=== PATIENT | female | born 2005 | race Native Hawaiian/Other Pacific Islander ===

== ENCOUNTER 2024-09-21 08:18 | Emergency (ER) | payer OTHER, SELFPAY ==
--- NOTE | ~2024-09-21 | CT_ITS ---
CLINICAL HISTORY: LLQ pain, nausea CT ABDOMEN AND PELVIS WITH CONTRAST Comparison: None provided Findings: Mild bibasilar atelectasis. No basilar consolidation or pleural effusion. Unremarkable gallbladder and solid organs. No urolithiasis. No bowel obstruction, pneumoperitoneum, or pneumatosis. No ascites or organized fluid collection. No significant mesenteric or paracolic edema. CT appearances of the uterus and ovaries unremarkable. Probable fluid in the endocervical canal. The appendix is partly visualized. No definite appendicitis. Grossly unremarkable underdistended urinary bladder. No acute fracture. IMPRESSION: No obstructive or acute inflammatory changes in the gastrointestinal and genitourinary tracts. This document has been electronically signed by: Donita Eason DO on 09/21/2024 14:14:26
[2024-09-21 08:24] VITALS: BP 114/62; PULSE 90; RESP 18; TEMP 36.6; O2SAT 98; BMI 40.3
--- NOTE | 2024-09-21 09:24 | ED_ITS ---
HPI - Nausea/Vomiting/Diarrhea General Chief complaint: Nausea/Vomiting/Diarrhea Stated complaint: vomiting Time Seen by Provider: 09/21/24 08:58 Source: patient and RN notes reviewed Mode of arrival: ambulatory Limitations: no limitations History of Present Illness ED Provider: Martha Dinero PA-C HPI Narrative: This is a 19-year-old female, with no known medical problems, who presents emergency department with concerns for nausea and vomiting for the last 24 hours. Patient states that she also has had nausea over the last several weeks. Patient reports that every time she eats she feels nauseous. She states that she also has had constipation this past week, states that she took an [id number] laxative type medication which provided her with some relief. She states that she has also has had diarrhea since. Denies any recent travel, surgery, hospitalizations. No recent antibiotic use. No sick contacts. No known food exposures. She states that she continues to have nausea. She states that she also gets very nauseous with alcohol use. She denies any fevers, chills, chest pain, shortness of breath. She states that she has had abdominal cramping, located on the left side which has been intermittent. Her last menstrual period was at the end of August. She is sexually active. She states that she also has had increased vaginal discharge, does report possible concerned for sexually transmitted infection. No other complaints or concerns at this time. MD elicited complaint: nausea Onset (ago): day(s) Associated nausea: Yes Associated abdominal pain: Yes Location of pain: LUQ and LLQ Pain consistency: intermittent Quality: cramping Exacerbating factors: none Relieving factors: none Associated symptoms: denies other symptoms Related Data Previous Rx's ?Medication ?Instructions ?Recorded metronidazole 500 mg tablet 500 mg PO BID 7 days #14 t abs 09/21/24 ondansetron 4 mg disintegrating 4 mg PO Q6H PRN nausea and 09/21/24 tablet vomiting #10 tabs Allergies Allergy/AdvReac Type Severity Reaction Status Date / Time No Known Allergies Allergy Verified 09/21/24 08:27 Review of Systems 2 Review of Systems: Yes all other systems are reviewed and are negative Constitutional: Constitutional: Reports as per HPI Gastrointestinal: Gastrointestinal: Reports nausea PMFSH Past Medical History Attestation statement: The following information was validated with the patient. Social History Social History Smoked in Last 30 Days: No Use of substances other than those prescribed or required for medical reasons: No Advance Directives: No Advance Directives Information Provided: No Patient : No Physical Exam 2 Vital Signs: Vital Signs: Last Vital Signs Temp 98.3 F 09/21/24 14:11 Pulse 92 09/21/24 14:11 Resp 16 09/21/24 14:11 BP 111/73 09/21/24 14:11 Pulse Ox 98 09/21/24 14:11 O2 Del Method Room Air 09/21/24 14:11 BMI result Body Mass Index 40.3 Const: General: cooperative, comfortable and no acute distress O rientation/consciousness: patient oriented x3 Limitations: no limitations HEENT: Head: Yes normal to inspection, Yes normocephalic and Yes atraumatic Ears: hearing grossly normal bilaterally General nose exam: Normal external nose present Face and sinus: Yes normal facial exam Mouth: Normal oral and palatal mucosa present, oropharynx normal and moist mucous membranes Throat: Yes posterior oropharynx normal Eyes: General: appearance normal, both eyes and all related structures E yelids: Yes eyelids normal Conjunctivae: conjunctivae normal Sclerae: s clerae normal Pupils: Equal, round and reactive pupils present EOM: EOMs intact bilaterally Neck: Neck: Yes normal visual inspection, Yes full ROM and Yes no lymphadenopathy Lymphatic: no lymphadenopathy noted Chest: Chest palpation & inspection: normal inspection of the chest Resp: Effort & Inspection: normal respiratory effort and able to speak in complete sentences Auscultation: clear to auscultation bilaterally, no crackles, no rales, no rhonchi and no wheezes Cardio: Rate: regular rate Rhythm: regular rhythm Heart sounds: S1 normal heart sound present and S2 normal heart sound present GI: Inspection: Yes normal to inspection : Other: Pelvic examination performed with [employer] technicians present at all times. Vaginal vault with slightly yellow been for vaginal discharge noted, cervical os is closed, no cervical motion tenderness. External Female Exam: normal external appearance and normal appearance of the urethra Speculum Exam - Vagina: normal appearance of the vagina and normal palpation Speculum Exam - Cervix: normal appearance of the cervix B imanual exam- vagina & uterus: normal palpation Skin: General skin exam: no rashes or lesions noted Trauma: no lacerations or abrasions Wounds: no wounds Neuro: General: patient oriented x3 and moves all extremities Cranial nerves: Yes Equal, round and reactive pupils present Extrem: General: Yes normal to inspection Right upper extremity: normal to inspection Left upper extremity: normal to inspection Right lower extremity: normal to inspection Left lower extremity: normal to inspection Medications Administered Discontinued Medications Generic Name Dose Route Start Last Admin Trade Name Freq PRN Reason Stop Dose Admin Diphenhydramine HCl 12.5 mg 09/21/24 12:04 09/21/24 12:09 Diphenhydramine Hcl 50 Mg/Ml Vial IVPUSH 09/21/24 12:05 12.5 mg ONCE ONE Administration Sodium Chloride 1,000 mls @ 999 mls/hr 09/21/24 10:00 09/21/24 10:56 Ns IV 09/21/24 11:00 Infused .Q1H1M SUHA Infusion Iohexol 85 ml 09/21/24 13:07 09/21/24 13:07 Iohexol 350 Mg/Ml 100 Ml Infus..Btl IV 09/21/24 13:08 85 ml ONCE ONE Administration Metoclopramide HCl 10 mg 09/21/24 12:04 09/21/24 12:09 Metoclopramide Hcl 10 Mg/2 Ml Vial IVPUSH 09/21/24 12:05 10 mg ONCE ONE Administration Ondansetron HCl 4 mg 09/21/24 10:19 09/21/24 10:45 Ondansetron Hcl 4 Mg/2 Ml Vial IVPUSH 09/21/24 10:20 4 mg ONCE ONE Administration Medical Decision Making Medical Decision Making [facility] Narrative: This is a 19-year-old female, with no known medical problems, who presents emergency department with concerns of nausea and vomiting for the last 24 hours. On arrival, vital signs within normal limits. She is speaking full sentences under no acute distress. Abdomen is soft with no tenderness palpation throughout, no rebound or guarding. Patient has had nausea for several weeks, worsening over the last 24 hours. She states that she took a test yesterday which was negative. Does report increased vaginal discharge. Expresses possible concern for STI. Denies history of similar symptoms in the past. Differential diagnoses include , electrolyte derangement, gastroenteritis, gastritis. Plan: Labs, IV fluids, plus or minus antiemetics 1208 - patient having intractable nausea despite receiving IV fluids and IV Zofran. Labs returned, she has no leukocytosis, stable H&H, chemistry revealing no evidence of SUZETTE, no electrolyte derangement, slight elevation in ALT at 35, she is not . Urine appears to be contaminated, does not appear to be infected. Will perform pelvic examination secondary to increased vaginal discharge. We will also medicate with Reglan and Benadryl. 1239 - pelvic examination with slight vaginal drainage noted, no cervical motion tenderness on examination. Given left lower quadrant pain as well as nausea, will obtain CT abdomen and pelvis to rule out any acute process. 1500 - CT abdomen and pelvis revealing no acute process. Swabs did come back, tested positive for trich and bacterial vaginosis. Discussed findings with patient. Will treat with course of metronidazole. Given strict return precautions. Advised to have all sexual partners informed. Given strict return precautions. She understands agrees with plan. She is feeling much better, tolerating p.o.. Stable for discharge. Differential Diagnosis Differential Diagnoses: The differential diagnosis associated with the presentation includes Lab Data [facility] Lab Attestation statement: I reviewed the patient's lab results. See MDM and course 09/21/24 09:31 09/21/24 09:31 Labs: Lab Results 09/21/24 09/21/24 09/21/24 Range/Units 09:23 09:31 12:38 WBC 10.0 (4.8-10.8) X10*3/uL RBC 4.47 (4.20-5.50) X10*6/uL Hgb 13.3 (12.0-16.0) g/dl Hct 38.1 (37.0-47.0) % MCV 85.2 (80.0-98.0) fL MCH 29.8 (27.0-33.0) pg MCHC 34.9 (31.0-35.0) g/dl RDW 12.9 (11.0-16.0) % Plt Count 376 (160-400) X10*3/uL MPV 9.7 (9.4-12.3) fL Immature Gran % (Auto) 0.4 (0.0-0.4) % Neut % (Auto) 65.6 (45-73) % Lymph % (Auto) 26.1 (20-40) % [place] % (Auto) 6.9 (2-11) % Eos % (Auto) 0.8 (0-4) % Baso % (Auto) 0.2 (0-2) % Lymph # (Auto) 2.6 (1.2-4.9) X10*3/uL [place] # (Auto) 0.7 (0.1-1.2) X10*3/uL Eos # (Auto) 0.1 (0.0-0.4) X10*3/uL Baso # (Auto) 0.0 (0.0-0.2) X10*3/uL Abs Immat Gran (auto) 0.04 H (0.00-0.03) X10*3/uL Absolute Neuts (auto) 6.6 (2.0-8.3) x10*3/uL Absolute Nucleated RBC 0.000 (0.0-0.012) X10*3/uL Nucleated RBC % (auto) 0.0 (0.0-0.2) /100WBC Sodium 142 (135-145) mmol/L Potassium 3.6 (3.3-5.1) mmol/L Chloride 109 H (96-108) mmol/L Carbon Dioxide 22 (22-29) mmol/L Anion Gap 15 (12-20) BUN 6 L (9-16) mg/dL Creatinine 0.70 (0.5-1.4) mg/dL Estim Creat Clear Calc 147.2 Estimated GFR > 60 Fasting Glucose 104 H (60-99) mg/dL Calcium 9.0 (8.4-10.2) mg/dL Total Bilirubin 0.5 (0.0-1.0) mg/dL AST 30 (5-31) U/L ALT 35 H (0-31) U/L Alkaline Phosphatase 87 (39-117) U/L Total Protein 7.4 (6.5-8.0) g/dL Albumin 4.3 (3.5-5.0) g/dL Lipase 13 (8-78) U/L Beta HCG, Quant < 2 mIU/mL Urine Color Yellow Urine Appearance Clear Urine pH 5.5 (5.0-9.0) Ur Specific [place] 1.015 (1.005-1.025) Urine Protein Negative (Neg-Trace) mg/dL Urine Glucose (UA) Negative (Negative) mg/dL Urine Ketones Negative (Negative) mg/dL Urine Blood Negative (Negative) Urine Nitrite Negative (Negative) Ur Leukocyte Esterase Negative (Negative) Urine RBC 0-2 (0-2) /HPF Urine WBC 0-5 (0-5) /HPF Ur Squamous Epith Cells 6-10 (0-2) /HPF Urine Bacteria 1+ (None Seen) Hyaline Casts 0-2 (0-2) /LPF Chlam trachomat DNA PCR NOT DETECTED (Not Detect.) N.gonorrhoeae DNA (PCR) NOT DETECTED (Not Detect.) T. vaginalis (PCR) DETECTED A (Not Detect) Bact vaginosis (PCR) POSITIVE A (Negative) C. krusei/glabrata (PCR) NOT DETECTED (Not Detect) Neelima group (PCR) NOT DETECTED (Not Detect) Radiology Impression Discussion of test interpretation with radiology: I have reviewed the radiologist's reading. Radiologist Impression: CT ABDOMEN AND PELVIS WITH CONTRAST Comparison: None provided Findings: Mild bibasilar atelectasis. No basilar consolidation or pleural effusion. Unremarkable gallbladder and solid organs. No urolithiasis. No bowel obstruction, pneumoperitoneum, or pneumatosis. No ascites or organized fluid collection. No significant mesenteric or paracolic edema. CT appearances of the uterus and ovaries unremarkable. Probable fluid in the endocervical canal. The appendix is partly visualized. No definite appendicitis. Grossly unremarkable underdistended urinary bladder. No acute fracture. IMPRESSION: No obstructive or acute inflammatory changes in the gastrointestinal and genitourinary tracts. This document has been electronically signed by: Donita Eason DO on 09/21/2024 14:14:26 Dictated By: Donita Eason MD Discharge Plan Discharge Clinical Impression: Trichomoniasis, Bacterial vaginosis, Nausea Patient Disposition: Home, Self-Care Instructions: Bacterial Vaginosis (ED), Acute Nausea and Vomiting (DC) Additional Instructions: You were seen in the emergency department due to nausea and vomiting. Please stick to a bland diet, drink plenty of fluids get plenty of rest. You did test positive for bacterial vaginosis, as well as Trichomonas. Trichomonas as a sexually transmitted infection - please take prescribed medication as directed. Please have your sexual partners advised that you tested positive for this as they also need to get tested and treated. Do not engage in any sexual activity until you complete the full course of medication. You may also have a test of cure performed at [facility], [facility], or your PCP. You may follow-up with [facility]), [facility], or your primary care physician to have more STI testing performed. You did test negative for gonorrhea, chlamydia, and Neelima today. Your CT scan was reassuring. Take Zofran as needed for nausea and or vomiting. If any new or worsening symptoms occur including but not limited to severe abdominal pain, nausea, vomiting, chest pain or shortness of breath, please seek emergent care. Prescriptions: New metronidazole 500 mg tablet 500 mg PO BID 7 Days Qty: 14 0RF ondansetron 4 mg tablet,disintegrating 4 mg PO Q6H PRN (Reason: nausea and vomiting) Qty: 10 0RF Print Language: Polish
[2024-09-21 09:34] LABS: Appearance Urine Clear; Glucose Urine UA Negative (Negative); PH 5.5 (5.0-9.0); Specific Gravity - Urine 1.015 (1.005-1.025)
[2024-09-21 09:37] LABS: MANUAL DIFF FLAG NO
[2024-09-21 09:42] LABS: Hematocrit 38.1 % (37.0-47.0); Hemoglobin 13.3 g/dl (12.0-16.0); Imm Gran Abs Auto 0.04 X10*3/uL (0.00-0.03); Imm Gran Pct Auto 0.4 % (0.0-0.4); Lymphocytes Absolute Auto 2.6 X10*3/uL (1.2-4.9); Mean Corpuscular HGB Conc 34.9 g/dl (31.0-35.0); Mean Corpuscular Hemoglobin 29.8 pg (27.0-33.0); Mean Corpuscular Volume 85.2 fL (80.0-98.0); NRBC Abs Auto 0.000 X10*3/uL (0.0-0.012); NRBC Pct Auto 0.0 /100WBC (0.0-0.2); Platelet Count 376 X10*3/uL (160-400); Red Blood Count 4.47 X10*6/uL (4.20-5.50); White Blood Count 10.0 X10*3/uL (4.8-10.8)
[2024-09-21 10:01] LABS: Alanine Aminotransferase 35 U/L (0-31); Albumin Level 4.3 g/dL (3.5-5.0); Alkaline Phosphatase 87 U/L (39-117); Anion Gap 15 (12-20); Aspartate Amino Transferase 30 U/L (5-31); Blood Urea Nitrogen 6 mg/dL (9-16); Calcium 9.0 mg/dL (8.4-10.2); Carbon Dioxide 22 mmol/L (22-29); Chloride 109 mmol/L (96-108); Creatinine Clr Calc Pharmacy 147.2; Estimated Glomerular Filt Rate > 60; Lipase 13 U/L (8-78); Potassium 3.6 mmol/L (3.3-5.1); Sodium 142 mmol/L (135-145); Total Protein 7.4 g/dL (6.5-8.0)
[2024-09-21 10:16] VITALS: BP 107/72; PULSE 74; RESP 16; TEMP 36.7; O2SAT 99
[2024-09-21 12:00] VITALS: BP 114/72; PULSE 89; RESP 16; TEMP 36.3; O2SAT 97
--- NOTE | 2024-09-21 12:02 | PC.NURSE ---
Pt c/o returning nausea and anxiety; provider aware/at bedside
--- NOTE | 2024-09-21 12:31 | PC.NURSE ---
Pt set up for pelvic exam per PA; KARLA Torres in room to assist
[2024-09-21] MEDS: iohexoL 350 MG/ML 100 ML INFUS..BTL 85 ML IV (13:07)
[2024-09-21 14:03] LABS: Bacterial Vaginosis PCR POSITIVE (Negative); Candida Group PCR NOT DETECTED (Not Detect); Candida glab krusei PCR NOT DETECTED (Not Detect); Trichomonas vaginalis PCR DETECTED (Not Detect)
[2024-09-21 14:11] VITALS: BP 111/73; PULSE 92; RESP 16; TEMP 36.8; O2SAT 98
[2024-09-21 14:23] LABS: CT PCR NOT DETECTED (Not Detect.); NG PCR NOT DETECTED (Not Detect.)
--- NOTE | 2024-09-21 14:36 | PC.NURSE ---
Pt resting quietly in room; denies nausea at this time and + decrease in her anxiety; awaiting dispo
[2024-09-21 15:18] VITALS: BP 109/69; PULSE 88; RESP 16; TEMP 36.8; O2SAT 100
== END 2024-09-21 15:21 | disposition home or self-care (01) ==
PROVIDERS: Physician Assistant Medical; Emergency Provider Emergency Medicine
DX: A59.01 Trichomonal vulvovaginitis (principal); N76.0 Acute vaginitis; R11.2 Nausea with vomiting, unspecified; Z20.2 Contact with and (suspected) exposure to infections with a predominantly sexual mode of transmission
CPT/HCPCS: 36415; 74177; 80053; 81001; 81515; 83690; 84702; 85025; 87491; 87591; 96361; 96374; 96375; 99284; J1200; J2405; J2765; Q9967

== ENCOUNTER → 2024-09-21 12:38 | Outpatient (BNV) | payer OTHER, SELFPAY | PROVIDERS: Emergency Provider Emergency Medicine; Visit Provider Radiology Diagnostic Radiology | DX: R10.32 Left lower quadrant pain (principal); R11.0 Nausea | CPT/HCPCS: 74177 ==

== ENCOUNTER 2025-03-06 18:21 | Emergency (ER) | payer OTHER, SELFPAY ==
--- NOTE | ~2025-03-06 | US_ITS ---
CLINICAL HISTORY: pelvic pain, +hcg US OB 1st trimester transabdominal Comparison: None provided Findings: Single intrauterine . CRL: 11.7 mm. EGA: 7 weeks, 3 days. CECILY: October 20, 2025. Previously established gestational age: N/A. Normal yolk sac . Cardiac activity: 165 bpm. Small subchorionic bleed measuring 8 x 5 x 5 mm. IMPRESSION: Single intrauterine estimated 7 weeks, 3 days gestational age by today's ultrasound criteria. Small subchorionic bleed. This document has been electronically signed by: Mame Hill MD on 03/06/2025 19:19:18
[2025-03-06 18:33] VITALS: BP 131/69; PULSE 80; RESP 18; TEMP 36.6; O2SAT 100; BMI 44.5
--- NOTE | 2025-03-06 18:33 | ED.PREGNANCY ---
HPI - General Chief complaint: OB Stated complaint: abd pain, nausea (preg.) Time Seen by Provider: 03/06/25 22:04 History of Present Illness HPI Narrative: Patient is a 19-year-old female did not today with having lower abdominal cramping nausea for 1 week. Had a home test positive. Last menstrual period was beginning of January. Patient 1st . Never been in the past. No vaginal discharge no bleeding. Patient is from home. Related Data Previous Rx's ?Medication ?Instructions ?Recorded metronidazole 500 mg tablet 500 mg PO BID 7 days #14 tabs 09/21/24 ondansetron 4 mg disintegrating 4 mg PO Q6H PRN nausea and 09/21/24 tablet vomiting #10 tabs nitrofurantoin 100 mg PO Q12H 7 days #14 caps 03/06/25 monohydrate/macrocrystals 100 mg capsule (Macrobid) Allergies Allergy/AdvReac Type Severity Reaction Status Date / Time No Known Allergies Allergy Verified 03/06/25 18:38 Review of Systems Review of Systems: Positive lower abdominal pain Yes all other systems are reviewed and are negative [facility] Past Medical History Attestation statement: The following information was validated with the patient. Social History Social History Advance Directives: No Advance Directives Information Provided: Yes Physical Exam Exam: Exam: Appearance: Alert. Oriented X3. No acute distress. Eyes: Pupils equal, round and reactive to light. ENT: Pharynx normal. Neck: Normal inspection. Neck supple. No lymph nodes noted. No crepitus CVS: Normal heart rate and rhythm. Pulses normal. Normal S1 and S2 Respiratory: No respiratory distress. Breath sounds normal. No Wheezing. No rales Abdomen: Soft and nontender. No rigidity. No distention. good BS x4 Skin: Skin warm and dry. Normal skin color. Normal skin turgor. Extremities: No lower extremity edema. Neurovascular intact to all extremities. No Lacerations. No Rash Neuro: Oriented X 3. No motor deficit. No sensory deficit. Moving all extermities. No slurred speech Vital Signs: Vital Signs: Last Vital Signs Temp 97.7 F 03/06/25 22:18 Pulse 80 03/06/25 22:18 Resp 16 03/06/25 22:18 BP 118/79 03/06/25 22:18 Pulse Ox 98 03/06/25 22:18 O2 Del Method Room Air 03/06/25 22:18 BMI result Body Mass Index 44.5 Course Course Course Narrative: This is an RME: Additional HPI, ROS, PE not included below will be deferred to primary provider. RME assessment and note performed by: Martha Dinero PA-C This is a 20-alla-xjp-female, who presents to the ER with a complaint of abdominal cramping x 1 week. Reports that she is , found out she was on February 06. Reports that she has had abdominal cramping and nausea. Reports last menstrual period was in December. Reports vaginal discharge - white/yellow. No bleeding. Plan: Labs, US, further ER eval needed Medical Decision Making Medical Decision Making [facility] Narrative: Well-appearing no acute distress. Patient's ultrasound shows a 7 week IUP. Patient's urine was infected. Will start patient on antibiotics. Close follow-up advised. Phone number for OBGYN given. Patient in no acute distress. Unlikely to have ectopic this is what naturally conceived baby. Differential Diagnosis Differential Diagnoses: The differential diagnosis associated with the presentation includes Ectopic miscarriage UTI Admission/Observation Consideration of admission/observation: Escalation of care including admission/observation considered Lab Data [facility] Lab Attestation statement: I reviewed the patient's lab results. 03/06/25 19:05 03/06/25 19:05 Labs: Lab Results 03/06/25 03/06/25 Range/Units 19:02 19:05 WBC 10.7 (4.8-10.8) X10*3/uL RBC 4.42 (4.20-5.50) X10*6/uL Hgb 12.9 (12.0-16.0) g/dl Hct 38.6 (37.0-47.0) % MCV 87.3 (80.0-98.0) fL MCH 29.2 (27.0-33.0) pg MCHC 33.4 (31.0-35.0) g/dl RDW 13.0 (11.0-16.0) % Plt Count 307 (160-400) X10*3/uL MPV 10.1 (9.4-12.3) fL Immature Gran % (Auto) 0.3 (0.0-0.4) % Neut % (Auto) 74.6 H (45-73) % Lymph % (Auto) 17.0 L (20-40) % [place] % (Auto) 7.1 (2-11) % Eos % (Auto) 0.7 (0-4) % Baso % (Auto) 0.3 (0-2) % Lymph # (Auto) 1.8 (1.2-4.9) X10*3/uL [place] # (Auto) 0.8 (0.1-1.2) X10*3/uL Eos # (Auto) 0.1 (0.0-0.4) X10*3/uL Baso # (Auto) 0.0 (0.0-0.2) X10*3/uL Abs Immat Gran (auto) 0.03 (0.00-0.03) X10*3/uL Absolute Neuts (auto) 8.0 (2.0-8.3) x10*3/uL Absolute Nucleated RBC 0.000 (0.0-0.012) X10*3/uL Nucleated RBC % (auto) 0.0 (0.0-0.2) /100WBC Sodium 135 (135-145) mmol/L Potassium 3.8 (3.3-5.1) mmol/L Chloride 107 (96-108) mmol/L Carbon Dioxide 19 L (22-29) mmol/L Anion Gap 13 (12-20) BUN 7 L (9-16) mg/dL Creatinine 0.59 (0.5-1.4) mg/dL Estim Creat Clear Calc 185.0 Estimated GFR > 60 Random Glucose 104 (60-115) mg/dL Calcium 9.4 (8.4-10.2) mg/dL Total Bilirubin 0.4 (0.0-1.0) mg/dL Direct Bilirubin 0.1 (0.0-0.5) mg/dL AST 29 (5-31) U/L ALT 45 H (0-31) U/L Alkaline Phosphatase 73 (39-117) U/L Total Protein 7.4 (6.5-8.0) g/dL Albumin 4.3 (3.5-5.0) g/dL Beta HCG, Quant 872812 mIU/mL Urine Color Yellow Urine Appearance Clear Urine pH 7.0 (5.0-9.0) Ur Specific [place] 1.015 (1.005-1.025) Urine Protein Negative (Neg-Trace) mg/dL Urine Glucose (UA) Negative (Negative) mg/dL Urine Ketones Negative (Negative) mg/dL Urine Blood Negative (Negative) Urine Nitrite Negative (Negative) Ur Leukocyte Esterase Large (3+) H (Negative) Urine RBC 0-2 (0-2) /HPF Urine WBC 11-20 H (0-5) /HPF Ur Squamous Epith Cells >20 (0-2) /HPF Urine Bacteria 4+ (None Seen) Hyaline Casts 0-2 (0-2) /LPF Independent Interpretation I performed an independent interpretation of an: Ultrasound ( positive IUP) Radiology Impression Discussion of test interpretation with radiology: I have reviewed the radiologist's reading. Independent Historian Clinical information obtained from an independent historian. History obtained from or confirmed by: Spouse Social Determinants Patient?s care significantly limited by Social Determinants of Health including: Problems related to primary support group Discharge Plan Discharge Clinical Impression: , Urinary tract infection Patient Disposition: Home, Self-Care Instructions: (ED), Urinary Tract Infection in (ED) Prescriptions: New nitrofurantoin monohyd/m-cryst [Macrobid] 100 mg capsule 100 mg PO Q12H 7 Days Qty: 14 0RF Rx Instructions: must administer with a meal/food No Action metronidazole 500 mg tablet 500 mg PO BID 7 Days Qty: 14 0RF ondansetron 4 mg tablet,disintegrating 4 mg PO Q6H PRN (Reason: nausea and vomiting) Qty: 10 0RF Referrals: [facility] [Provider Group] - 03/11/25 Physician,None [Primary Care Provider, Medical] Referral Note: please follow-up with OBGYN. Print Language: Mozambican
[2025-03-06 19:10] LABS: MANUAL DIFF FLAG NO
[2025-03-06 19:11] LABS: Appearance Urine Clear; Glucose Urine UA Negative (Negative); PH 7.0 (5.0-9.0); Specific Gravity - Urine 1.015 (1.005-1.025); UMIC TRIGGER UACC YES
[2025-03-06 19:13] LABS: UACC Culture Trigger YES
[2025-03-06 19:32] LABS: Alanine Aminotransferase 45 U/L (0-31); Albumin Level 4.3 g/dL (3.5-5.0); Alkaline Phosphatase 73 U/L (39-117); Anion Gap 13 (12-20); Aspartate Amino Transferase 29 U/L (5-31); Blood Urea Nitrogen 7 mg/dL (9-16); Calcium 9.4 mg/dL (8.4-10.2); Carbon Dioxide 19 mmol/L (22-29); Chloride 107 mmol/L (96-108); Creatinine Clr Calc Pharmacy 185.0; Estimated Glomerular Filt Rate > 60; Hematocrit 38.6 % (37.0-47.0); Hemoglobin 12.9 g/dl (12.0-16.0); Imm Gran Abs Auto 0.03 X10*3/uL (0.00-0.03); Imm Gran Pct Auto 0.3 % (0.0-0.4); Lymphocytes Absolute Auto 1.8 X10*3/uL (1.2-4.9); Mean Corpuscular HGB Conc 33.4 g/dl (31.0-35.0); Mean Corpuscular Hemoglobin 29.2 pg (27.0-33.0); Mean Corpuscular Volume 87.3 fL (80.0-98.0); NRBC Abs Auto 0.000 X10*3/uL (0.0-0.012); NRBC Pct Auto 0.0 /100WBC (0.0-0.2); Platelet Count 307 X10*3/uL (160-400); Potassium 3.8 mmol/L (3.3-5.1); Red Blood Count 4.42 X10*6/uL (4.20-5.50); Sodium 135 mmol/L (135-145); Total Protein 7.4 g/dL (6.5-8.0); White Blood Count 10.7 X10*3/uL (4.8-10.8)
[2025-03-06 22:18] VITALS: BP 118/79; PULSE 80; RESP 16; TEMP 36.5; O2SAT 98
[2025-03-06 22:32] VITALS: BP 118/79; PULSE 80; RESP 16; TEMP 36.5; O2SAT 98
== END 2025-03-06 22:32 | disposition home or self-care (01) ==
PROVIDERS: Physician Assistant Medical; Emergency Provider Emergency Medicine Emergency Medical Services
DX: O23.41 Unspecified infection of urinary tract in pregnancy, first trimester (principal); Z3A.01 Less than 8 weeks gestation of pregnancy
CPT/HCPCS: 36415; 76801; 80048; 80076; 81001; 84702; 85025; 87086; 99283; 99284

== ENCOUNTER → 2025-03-06 18:39 | Outpatient (BNV) | payer OTHER, SELFPAY | PROVIDERS: Visit Provider Radiology Diagnostic Radiology | DX: O26.891 Other specified pregnancy related conditions, first trimester (principal); R10.20 Pelvic and perineal pain unspecified side; Z3A.01 Less than 8 weeks gestation of pregnancy | CPT/HCPCS: 76801 ==